=== PATIENT | female | born 1990 | race African-American/Black ===

== ENCOUNTER 2017-06-05 19:04 | Emergency (ER) | payer OTHER ==
[~2017-06-05] VITALS: Ht 162.6 cm; Wt 59.0 kg
[~2017-06-05 19:04] MED LIST: BUTALB-APAP-CA1 EACH PO
[2017-06-05 19:34] LABS: URINE BILIRUBIN NEGATIVE (Negative); URINE BLOOD 2+ (Negative); URINE COLOR YELLOW; URINE GLUCOSE-RANDOM* NEGATIVE (Negative); URINE KETONES 2+ (Negative); URINE LEUKOCYTES-REFLEX NEGATIVE (Negative); URINE PROTEIN (DIPSTICK) NEGATIVE (Negative); URINE SPECIFIC GRAVITY 1.025 (1.003-1.035); URINE UROBILINOGEN 0.2 E.U./dl (0.2-1.0)
[2017-06-05 19:51] LABS: SQUAMOUS 4-10 Moderate /LPF (0-3)
[2017-06-05 19:52] LABS: CASTS None Seen /LPF (None Seen); CRYSTALS None Seen /LPF (None Seen); URINE RBC 0-2 Rare /HPF (0-2)
[2017-06-05 20:07] LABS: ABSOLUTE NEUTROPHILS 2.8 thou/uL (1.4-8.2); BASOPHILS 0.7 % (0.0-2.0); EOSINOPHILS 0.9 % (0.0-3.0); HEMATOCRIT 35.8 % (37.0-47.0); LYMPHOCYTES 42.7 % (24.0-44.0); MCH 29.3 pg (26.0-34.0); MCHC 33.5 g/dL (28.0-37.0); MCV 87.5 fL (80.0-100.0); MONOCYTES 8.4 % (1.0-8.0); PLATELET COUNT 323 thou/uL (150-400); POLYS 47.3 % (36.0-66.0); RBC 4.09 mil/uL (4.20-5.00); RDW 16.5 % (10.5-14.5); WBC 5.9 thou/uL (4.0-11.0)
[2017-06-05 20:08] LABS: MANUAL DIFF NO
[2017-06-05 20:14] LABS: CALCIUM 8.9 mg/dL (8.5-10.1); CREATININE 0.8 mg/dL (0.6-1.0); POTASSIUM 3.1 mmol/L (3.5-5.1)
[2017-06-05 20:21] LABS: ALBUMIN 3.8 g/dL (3.4-5.0); TOTAL BILIRUBIN 0.3 mg/dL (<0.1-1.0)
[2017-06-05] MEDS ORDERED: MOBIC15 MG PO (21:34)
[2017-06-05] MEDS ORDERED: KEFLEX500 MG PO (21:34)
[2017-06-05 21:45] VITALS: BP 109/78
[2017-06-07 18:07] LABS: CHLAMYDIA TRACHOMATIS-PCR Negative (Negative); NEISSERIA GONORRHEA-PCR Negative (Negative)
== END 2017-06-05 21:45 | disposition home or self-care (01) ==
LOC: ER 19:04
PROVIDERS: Physician Assistant
DX: O03.88 Urinary tract infection following complete or unspecified spontaneous abortion (principal); R10.2 Pelvic and perineal pain; G43.909 Migraine, unspecified, not intractable, without status migrainosus